=== PATIENT | male | born 1965 | race Caucasian/White ===

== ENCOUNTER 2017-09-27 09:49 | Outpatient (CLI) | payer BC ==
--- NOTE | 2017-09-27 12:54 | MRI ---
LUMBAR SPINE MRI WITHOUT IV CONTRAST: History: 52-year-old male with history of lumbar radiculopathy following an injury to the back in 2006, now wi th right leg pain. FINDINGS: Conus medullaris region is unremarkable, terminating at L1. Small T2 hyperintense T1 hypointense focu s in the lower pole of the right kidney, statistically a small renal cyst. Generalized disc desiccati on changes and ligament and facet hypertrophic changes. T12-L1 and L1-2 and L2-3 disc demonstrate no evidence of focal herniation or canal or foraminal stenosis. At L3-4 there is more prominent ligament and facet hypertrophic changes and desiccation change withou t evidence for associated stenosis. At L4-5 there are several mm of anterolisthesis. There is significant facet arthrosis changes noted. There is some diffuse disc bulging, a combination of findings result in moderate lateral recess steno sis and mild central canal stenosis without significant foraminal stenosis. At L5-S1 there is minimal diffuse bulging with a left posterolateral annular fissure. No significant foraminal stenosis. IMPRESSION: Some moderate lateral recess and mild central canal stenosis at L4-5. Small annular fissure in the le ft posterolateral aspect at L5-S1. Generalized spondylosis. POS: [facility]
== END 2017-09-27 09:50 | disposition home or self-care (01) ==
LOC: MRI 09:49
PROVIDERS: ATTEND Neurological Surgery
DX: M47.26 Other spondylosis with radiculopathy, lumbar region (principal); M48.061 Spinal stenosis, lumbar region without neurogenic claudication; Q05.7 Lumbar spina bifida without hydrocephalus
CPT/HCPCS: 72148

== ENCOUNTER 2017-11-09 09:59 | Outpatient (CLI) | payer BC ==
--- NOTE | 2017-11-09 12:43 | RAD ---
LUMBAR SPINE 3 VIEWS: HISTORY: Spondylolisthesis. COMPARISON: None. CORRELATION: Lumbar spine MRI 09/27/17. FINDINGS: Lateral neutral, lateral extension, and lateral flexion views demonstrate 5 lumbar-type vertebral bod ies. In the neutral position, there is 3.8 mm of anterolisthesis of L4 upon L5. Upon flexion, there is 4.4 mm of anterolisthesis of L4 upon L5. Upon extension, there is 2.2 mm of anterolisthesis of L 4 upon L5. Disk space heights are preserved. There are no fractures. IMPRESSION: Ruby I anterolisthesis of L4 upon L5 with slight translational motion upon flexion and extension. POS: [facility]
== END 2017-11-09 10:00 | disposition home or self-care (01) ==
LOC: RAD 09:59
PROVIDERS: ATTEND Specialist
DX: M43.16 Spondylolisthesis, lumbar region (principal)
CPT/HCPCS: 72120

== ENCOUNTER 2018-05-26 08:00 | Inpatient (IN) | payer BC, OTHER ==
[2018-05-26 09:03] VITALS: BMI 29.5
[2018-05-29] MEDS ORDERED: CEFAZOLIN 2 GM/50 ML BAG ONE (06:15)
[2018-05-29] MEDS ORDERED: Sodium Chloride 0.9% 10 ML ONE (06:27)
[2018-05-29] MEDS ORDERED: Fentanyl 100 MCG/2 ML VIAL ONE ×3 (06:47→08:55)
[2018-05-29] MEDS ORDERED: Midazolam HCl 2 mg/2 ml Vial ONE (06:47)
[2018-05-29] MEDS ORDERED: Promethazine HCl 25 MG/ML VIAL ONE (08:57)
--- NOTE | 2018-05-29 10:18 | OP ---
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 PROCEDURES PERFORMED: Left L4-L5 laminectomy, facetectomy, foraminotomy, interbody arthrodesis, intervertebral biomechanical device, local morselized autograft, demineralized bone matrix, posterolateral arthrodesis, pedicle screw instrumentation, L4-L5. DESCRIPTION OF PROCEDURE: The patient was brought to the operating room and intubated. He was rolled in a prone position on gel-filled chest rolls. Incision was made exposing L4 and L5, and the level was confirmed by x-ray. We performed left L4-L5 laminectomy, facetectomy, and foraminotomy completely decompressing the neural elements. The disk itself was incised and debrided, and the bony endplates were decorticated for the purpose of arthrodesis. An appropriate-sized intervertebral biomechanical PEEK device was brought into the field, filled with demineralized bone matrix, local morselized autograft, and tapped in place securely at L4-L5. Next, pedicle screws were placed at left L4 and left L5 using lateral fluoroscopic guidance, and the position was confirmed by x-ray. The luis carlos was secured between the screws connected by nuts, which were final tightened. The wound was then extensively irrigated, and adequate hemostasis was secured. Combination of demineralized bone matrix and local morselized autograft was laid over the lamina and posterolateral surfaces for the purpose of arthrodesis. Vancomycin powder was applied, and the wound was closed in anatomic layers. Job ID: [id number] MTDD
[2018-05-29] MEDS ORDERED: HYDROcodone/Acetaminophen 10/325 mg Tablet ONE (11:42)
== END 2018-05-29 12:25 | disposition home or self-care (01) | DRG 460 ==
LOC: SURG A 05-29 05:57
PROVIDERS: ADMIT Neurological Surgery; ATTEND Neurological Surgery
PROC: 0SG00AJ Fusion of Lumbar Vertebral Joint with Interbody Fusion Device, Posterior Approach, Anterior Column, Open Approach (ICD-10-PCS; principal; 2018-05-29)
DX: M43.16 Spondylolisthesis, lumbar region (principal)
CPT/HCPCS: 76001; 80048; 85025; 93005; 93010; C1713; C1768; J2250; J2550; J3010; J3370; J3490

== ENCOUNTER 2018-05-26 08:49 | Outpatient (CLI) | payer BC, OTHER ==
[2018-05-26 10:43] LABS: #Basophils 0.1 thou/uL (0.0-0.2); #Eosinphils 0.1 thou/uL (0.0-0.7); #Lymphocytes 1.7 thou/uL (1.20-3.40); #Monocytes 0.6 thou/uL (0.11-0.59); #Neutrophils 2.8 thou/uL (1.40-6.50); %Basophils 1.5 % (0.0-1.0); %Eosinophils 2.4 % (0.0-10.0); %Lymphocytes 32.6 % (21.0-51.0); %Monocytes 10.8 % (0.0-10.0); %Neutrophils 52.8 % (42.0-75.0); Hemoglobin 13.4 g/dL (14.0-18.0); Mean Corpuscular HGB CONC 33.8 g/dL (32.0-36.0); Mean Corpuscular Hemoglobin 30.6 pg (27.0-31.0); Mean Corpuscular Volume 90.4 fL (78.0-98.0); Mean Platelet Volume 7.7 fL (7.4-10.4); Platelet Count 284 thou/uL (130-400); RBC Distribution Width 12.3 % (11.5-14.5); Red Blood Cell (RBC) Count 4.37 mill/uL (4.70-6.10); White Blood Cell (WBC) Count 5.3 thou/uL (4.8-10.8)
[2018-05-26 10:59] LABS: Anion Gap 11 mmol/L (10-20); BUN (Urea Nitrogen) 15 mg/dL (8.4-25.7); Calc. Creatinine Clearance 0 mL/min (70-130); Calcium 9.7 mg/dL (7.8-10.44); Carbon Dioxide 27 mmol/L (22-29); Chloride 105 mmol/L (98-107); Estimated GFR-MDRD 78; Glucose 89 mg/dL (70-105); Sodium 139 mmol/L (136-145)
== END 2018-05-26 08:50 | disposition home or self-care (01) ==
LOC: LABBT 08:49
PROVIDERS: ATTEND Neurological Surgery
DX: Z01.818 Encounter for other preprocedural examination (principal); M43.16 Spondylolisthesis, lumbar region
CPT/HCPCS: 80048; 85025; 93005; 93010

== ENCOUNTER 2018-06-03 16:41 | Emergency (ER) | payer BC, OTHER ==
[2018-06-03 18:10] LABS: #Eosinphils 0.1 thou/uL (0.0-0.7); #Lymphocytes 1.5 thou/uL (1.20-3.40); #Monocytes 0.7 thou/uL (0.11-0.59); #Neutrophils 5.8 thou/uL (1.40-6.50); %Basophils 0.3 % (0.0-1.0); %Eosinophils 0.9 % (0.0-10.0); %Monocytes 8.1 % (0.0-10.0); %Neutrophils 71.7 % (42.0-75.0); Hemoglobin 12.6 g/dL (14.0-18.0); Mean Corpuscular HGB CONC 33.2 g/dL (32.0-36.0); Mean Corpuscular Hemoglobin 30.2 pg (27.0-31.0); Mean Platelet Volume 6.7 fL (7.4-10.4); Platelet Count 399 thou/uL (130-400); RBC Distribution Width 12.5 % (11.5-14.5); Red Blood Cell (RBC) Count 4.17 mill/uL (4.70-6.10)
[2018-06-03] MEDS ORDERED: Ondansetron PF 4 MG/2 ML Vial ONE (18:12)
[2018-06-03] MEDS ORDERED: Morphine 4 MG/ML VIAL ONE (18:12)
--- NOTE | 2018-06-03 18:18 | RAD ---
PORTABLE CHEST ONE VIEW: 06/03/18 at 6:03 p.m. HISTORY: Fever, nausea, vomiting, recent back surgery. FINDINGS: Comparison made with exam of 06/03/08. The heart size is normal. The lungs are expanded without focal areas of consolidation, pneumothorax o r pleural effusions. 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 IMPRESSION: No acute process. POS: [facility]
[2018-06-03 18:34] LABS: ALT (SGPT) 48 U/L (8-55); AST (SGOT) 35 U/L (5-34); Albumin 4.1 g/dL (3.5-5.0); Alkaline Phosphatase 90 U/L (40-150); Anion Gap 13 mmol/L (10-20); BUN (Urea Nitrogen) 22 mg/dL (8.4-25.7); Bilirubin, Total 0.4 mg/dL (0.2-1.2); Calc. Creatinine Clearance 0 mL/min (70-130); Calcium 9.8 mg/dL (7.8-10.44); Carbon Dioxide 24 mmol/L (22-29); Chloride 106 mmol/L (98-107); Estimated GFR-MDRD 77; Globulin 3.5 g/dL (2.4-3.5); Glucose 96 mg/dL (70-105); Potassium 4.1 mmol/L (3.5-5.1); Protein, Total 7.6 g/dL (6.0-8.3); Sodium 139 mmol/L (136-145)
[2018-06-03 18:57] LABS: Bilirubin Negative (Negative); Blood, Urine Negative (Negative); Clarity CLEAR (Clear); Glucose, Urine (Dipstick) Negative (Negative); Leukocyte Negative (Negative); Nitrite Negative (Negative); Protein, Urine (Dipstick) Negative (Neg-Trace); Specific Gravity, Urine 1.024 (1.002-1.036); Urobilinogen 0.2 mg/dL (0.2-1.0); pH, Urine 5.5 (5.0-9.0)
[2018-06-03] MEDS ORDERED: Acetaminophen 500 MG TAB ONE (19:13)
== END 2018-06-03 19:40 | disposition home or self-care (01) ==
LOC: ERS 16:41
DX: R11.2 Nausea with vomiting, unspecified (principal); R50.9 Fever, unspecified; G89.18 Other acute postprocedural pain; K21.9 Gastro-esophageal reflux disease without esophagitis; E78.5 Hyperlipidemia, unspecified; F43.10 Post-traumatic stress disorder, unspecified; Z87.891 Personal history of nicotine dependence; Z79.899 Other long term (current) drug therapy
CPT/HCPCS: 36415; 71045; 80053; 81003; 83605; 84484; 85025; 87086; 96361; 96374; 96375; J2270; J2405

== ENCOUNTER 2018-06-14 15:55 | Outpatient (CLI) | payer BC ==
--- NOTE | 2018-06-14 18:59 | RAD ---
TWO VIEWS LUMBAR SPINE 06/14/18 HISTORY: Followup prior lumbar surgery. Disc disorder. COMPARISON: 11/09/17 FINDINGS: There are five nonribbearing lumbar type vertebral bodies. There has been interval postsurgical toth es related to posterior fusion at the L4-5 level with unilateral left sided pedicular screws and post erior luis carlos transfixing this level. Intra discal prosthesis is now noted in place. There is persistent slight grade I anterolisthesis of L4 on L5. Mild degenerative changes are seen in at the lumbosacral junction. Vertebral body heights are within normal limits and there is no fracture or additional lev el of subluxation. Surgical clips overlie the right upper quadrant. IMPRESSION: Interval postsurgical change related to posterior fusion at the L4-5 level. POS: [facility]
== END 2018-06-14 15:56 | disposition home or self-care (01) ==
LOC: TBSIIMAG 15:55
PROVIDERS: ATTEND Neurological Surgery
DX: M51.16 Intervertebral disc disorders with radiculopathy, lumbar region (principal); Z98.1 Arthrodesis status
CPT/HCPCS: 72100

== ENCOUNTER 2018-07-20 14:58 | Outpatient (CLI) | payer BC, OTHER ==
--- NOTE | 2018-07-20 16:22 | RAD ---
LUMBAR SPINE SERIES TWO VIEWS: 07/20/18 HISTORY: Followup of surgery. Vertebral bodies are normal in height. There is some minimal disc narrowing at L3-4. Left unilateral pedicle screws are seen at L4-5. Markers of a disc implant are within the confines of the disc level. IMPRESSION: Stable postop change. POS: [facility]
== END 2018-07-20 14:59 | disposition home or self-care (01) ==
LOC: TBSIIMAG 14:58
PROVIDERS: ATTEND Neurological Surgery
DX: M51.36 Other intervertebral disc degeneration, lumbar region (principal); Z98.890 Other specified postprocedural states
CPT/HCPCS: 72100

== ENCOUNTER 2018-10-05 09:47 | Outpatient (CLI) | payer BC ==
--- NOTE | 2018-10-05 10:12 | RAD ---
EXAM: XR Lumbar Spine 2 Or 3 View PROVIDED CLINICAL HISTORY: Low back pain. COMPARISON: 07/20/2018. FINDINGS: 5 nonrib-bearing lumbar-type vertebral bodies are again noted. 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 Intradiscal prosthesis is stable in position. No hardware complication is s een. There is stable grade 1 anterolisthesis of L4 on L5. Remaining vertebral body heights are within normal limits. There is no fracture or new level of sublu xation seen. Scattered osteophytes are seen within the lumbar spine. Surgical clips overlie the right upper quadrant. No other interval change. IMPRESSION: Stable postoperative changes and mild degenerative changes in the lumbar spine.
== END 2018-10-05 09:48 | disposition home or self-care (01) ==
LOC: TBSIIMAG 09:47
PROVIDERS: ATTEND Neurological Surgery
DX: M54.5 Low back pain (principal); M47.816 Spondylosis without myelopathy or radiculopathy, lumbar region; Z98.890 Other specified postprocedural states
CPT/HCPCS: 72100

== ENCOUNTER 2018-10-17 12:38 | Outpatient (CLI) | payer BC ==
--- NOTE | 2018-10-17 14:15 | MRI ---
LUMBAR SPINE MRI WITH AND WITHOUT CONTRAST: Date: 10/17/18 HISTORY: Prior back surgery, disc degeneration, pain. TECHNIQUE: Multiplanar, multisequence MR imaging of the lumbar spine obtained with and without contrast. FINDINGS: Left-sided L4 and L5 pedicle screw present, not well assessed on MRI. Intervertebral disc device note d to the left of midline at L4-5. Sagittal STIR imaging demonstrates increased T2 signal within the facet joint on the right at L4-5. T here is posterior paraspinal increased T2 signal at the postsurgical site consistent with postsurgica l change. There is no significant anterolisthesis or retrolisthesis noted within the lumbar spine. Assuming five lumbar-type vertebral bodies, conus medullaris terminates at the T12-L1 level. T12-L1: Intervertebral disc height and signal intensity appears within normal limits with no signifi cant central canal or neural foraminal stenosis. L1-2: Mild bilateral facet hypertrophy. Intervertebral disc height and signal intensity within maxine l limits with no significant central canal or neural foraminal stenosis. L2-3: Mild bilateral facet hypertrophy. Intervertebral disc height and signal intensity within maxine l limits with no significant central canal or neural foraminal stenosis. L3-4: Mid bilateral facet hypertrophy. Disc desiccation. No significant central canal or neural fora steven stenosis. L4-5: Evaluation on the left is slightly limited on the basis of hardware artifact. There is disc sp mert narrowing and disc desiccation. No significant central canal or neural foraminal stenosis. Left n eural foramen is not well assessed on this examination. L5-S1: There is mild bilateral facet hypertrophy. No significant central canal or neural foraminal s tenosis. There is a small left paracentral annular tear. There is a probable cyst in the lower pole of the right kidney. Imaged retroperitoneal structures estelle ear grossly unremarkable otherwise. The postcontrast imaging demonstrates no abnormal enhancement involving nerve roots of the cauda equi na. Imaged osseous structures demonstrate no abnormal enhancement. There is enhancement of the interv ertebral disc on the left in the foraminal region at L4-5 which could be related to scar/prior surger y. Evaluation of postcontrast imaging is limited secondary to hardware artifact at L4-5 and L5-S1. There is enhancement to the paraspinal musculature posterior to the L5 vertebral body, evidence of postsur gical scar. IMPRESSION: Postoperative and degenerative change noted within the lumbar spine as detailed above. POS: [facility]
== END 2018-10-17 12:39 | disposition home or self-care (01) ==
LOC: TBSIIMAG 12:38
PROVIDERS: ATTEND Neurological Surgery
DX: M51.36 Other intervertebral disc degeneration, lumbar region (principal); M47.816 Spondylosis without myelopathy or radiculopathy, lumbar region; Z98.890 Other specified postprocedural states
CPT/HCPCS: 72158; 82565

== ENCOUNTER 2019-10-11 19:50 | Emergency (ER) | payer BC ==
--- NOTE | 2019-10-11 20:44 | RAD ---
LEFT WRIST: 10/11/19 Three views. HISTORY: Injury. No evidence of fracture. Distal radius and ulna appear intact. The carpals appear normally aligned. On the lateral view there is a fragment seen from the dorsal aspect of the trapezius; however, this i s corticated and does not represent an acute fracture. It may represent an old injury. IMPRESSION: No acute abnormality identified. POS: [facility]
== END 2019-10-11 21:00 | disposition home or self-care (01) ==
LOC: ERS 19:50
DX: S63.502A Unspecified sprain of left wrist, initial encounter (principal); K21.9 Gastro-esophageal reflux disease without esophagitis; E78.5 Hyperlipidemia, unspecified; E78.00 Pure hypercholesterolemia, unspecified; F43.10 Post-traumatic stress disorder, unspecified; Z87.891 Personal history of nicotine dependence; Z79.899 Other long term (current) drug therapy; X58.XXXA Exposure to other specified factors, initial encounter

== ENCOUNTER 2019-12-21 11:52 | Emergency (ER) | payer BC, OTHER | END 2019-12-21 12:16 | disposition home or self-care (01) | LOC: ERS 11:52 | DX: R05 Cough (principal); R51 Headache; R68.83 Chills (without fever); R53.83 Other fatigue; K21.9 Gastro-esophageal reflux disease without esophagitis; E78.5 Hyperlipidemia, unspecified; E78.00 Pure hypercholesterolemia, unspecified; F43.10 Post-traumatic stress disorder, unspecified; Z87.891 Personal history of nicotine dependence; Z20.828 Contact with and (suspected) exposure to other viral communicable diseases; Z79.899 Other long term (current) drug therapy | CPT/HCPCS: 87635; 99284; U0003 ==

== ENCOUNTER 2020-11-14 10:46 | Outpatient (CLI) | payer BC | END 2020-11-14 10:47 | disposition home or self-care (01) | LOC: CTENTCT 10:46 | PROVIDERS: ATTEND Specialist | DX: J32.9 Chronic sinusitis, unspecified (principal); G50.1 Atypical facial pain | CPT/HCPCS: 70486 ==

== ENCOUNTER 2021-03-20 07:29 | Outpatient (CLI) | payer BC ==
[2021-03-20] MEDS ORDERED: Iopamidol 370 76% 100 ML VIAL ONE (11:56)
== END 2021-03-20 07:30 | disposition home or self-care (01) ==
LOC: CT 07:29
PROVIDERS: ATTEND Internal Medicine Gastroenterology
DX: K21.9 Gastro-esophageal reflux disease without esophagitis (principal); R10.13 Epigastric pain
CPT/HCPCS: 74177; Q9967

== ENCOUNTER 2022-09-13 14:36 | Outpatient (CLI) | payer BC ==
[2022-09-13 15:37] LABS: #Eosinphils 0.1 10x3/uL (0.0-0.5); #Monocytes 0.6 10x3/uL (0.0-1.1); #Neutrophils 2.5 10x3/uL (1.5-8.4); %Basophils 0.8 % (0.0-2.0); %Lymphocytes 37.8 % (18.0-47.0); %Monocytes 11.5 % (0.0-10.0); %Neutrophils 48.5 % (40.0-75.0); Hemoglobin 13.2 g/dL (13.5-17.5); Mean Corpuscular HGB CONC 33.2 g/dL (32.0-36.0); Mean Corpuscular Hemoglobin 30.2 pg (27.0-33.0); Mean Corpuscular Volume 90.8 fl (81.2-95.1); Mean Platelet Volume 9.7 fl (7.4-10.4); Platelet Count 305 10x3/uL (150-450); RBC Distribution Width 13.9 % (11.5-14.5); Red Blood Cell (RBC) Count 4.37 10x6/uL (4.32-5.72); White Blood Cell (WBC) Count 5.1 10x3/uL (3.5-10.5)
[2022-09-13 15:55] LABS: Anion Gap 14 mmol/L (10-20); BUN (Urea Nitrogen) 15 mg/dL (8.4-25.7); Calc. Creatinine Clearance 0 mL/min (70-130); Calcium 9.1 mg/dL (7.8-10.44); Carbon Dioxide 25 mmol/L (22-29); Chloride 104 mmol/L (98-107); Estimated GFR 87; Glucose 90 mg/dL (70-105); Potassium 4.1 mmol/L (3.5-5.1); Sodium 139 mmol/L (136-145)
== END 2022-09-13 14:37 | disposition home or self-care (01) ==
LOC: LABBT 14:36
PROVIDERS: ATTEND Orthopaedic Surgery
DX: Z01.818 Encounter for other preprocedural examination (principal); M77.11 Lateral epicondylitis, right elbow
CPT/HCPCS: 71046; 80048; 85025; 93005; 93010

== ENCOUNTER 2022-09-15 09:17 | Day surgery (SDC) | payer BC ==
[2022-09-14 10:34] VITALS: BMI 29.5
[2022-09-15] MEDS ORDERED: fentaNYL PF 100 MCG/2 ML SYRINGE ONE (10:55)
[2022-09-15] MEDS ORDERED: Clindamycin/D5W 600 mg/50 ml Premix Bag ONE (11:07)
[2022-09-15] MEDS ORDERED: Ondansetron PF 4 MG/2 ML Vial ONE (11:25)
[2022-09-15] MEDS ORDERED: GLYCOPYRROLATE/PF 0.2 MG/ML VIAL ONE (11:25)
[2022-09-15] MEDS ORDERED: ePHEDrine Sulfate 50 MG/10 ML VIAL ONE (11:25)
[2022-09-15] MEDS ORDERED: PROPOFOL 200 MG/20 ML VIAL ONE (11:25)
[2022-09-15] MEDS ORDERED: Lidocaine 1% PF 5 ML VIAL ONE (11:25)
[2022-09-15] MEDS ORDERED: Dexamethasone 20 MG/5 ML VIAL ONE (11:25)
[2022-09-15] MEDS ORDERED: Bupivacaine PF 0.5% 30 ML VIAL ONE (11:56)
== END 2022-09-15 14:00 | disposition home or self-care (01) ==
LOC: SDC 09:17
PROVIDERS: ATTEND Orthopaedic Surgery
PROC: 0PBK0ZZ Excision of Right Ulna, Open Approach (ICD-10-PCS; principal; 2022-09-15)
DX: M77.11 Lateral epicondylitis, right elbow (principal); E78.00 Pure hypercholesterolemia, unspecified; Z79.82 Long term (current) use of aspirin; Z79.899 Other long term (current) drug therapy; Z88.0 Allergy status to penicillin; Z88.1 Allergy status to other antibiotic agents; Z88.2 Allergy status to sulfonamides; Z88.8 Allergy status to other drugs, medicaments and biological substances
CPT/HCPCS: J1100; J2405; J2704; J3490; S0020